=== PATIENT | female | born 1970 | race African-American/Black ===

== ENCOUNTER 2017-03-06 10:43 | Day surgery (SDC) | payer OTHER ==
[2017-03-04 11:20] VITALS: BMI 36.6
[2017-03-06] MEDS ORDERED: methylPREDNISolone ACET (DEPO) 40 MG/1 ML VIAL ONE (12:04)
[2017-03-06] MEDS ORDERED: BUPIVACAINE HCL 0.25% 125 MG/50 ML VIAL ONE (12:04)
[2017-03-06] MEDS ORDERED: PROPOFOL 20 ML ONE (13:39)
[2017-03-06] MEDS ORDERED: ceFAZolin SODIUM 1 GM VIAL ONE (13:39)
[2017-03-06] MEDS ORDERED: LIDOCAINE HCL/PF 2% SDV 5ML VIAL ONE (13:39)
[2017-03-06] MEDS ORDERED: SUCCINYLCHOLINE CHLORIDE 200 MG/10 ML VIAL ONE (13:40)
[2017-03-06] MEDS ORDERED: MIDAZOLAM HCL 2 MG/2 ML SINGLE DOSE VIAL ONE (13:44)
[2017-03-06] MEDS ORDERED: IBUPROFEN 400 MG TABLET (FP) PO PRN (13:47)
[2017-03-06] MEDS ORDERED: ROCURONIUM BROMIDE 50 MG/5 ML VIAL ONE (14:01)
[2017-03-06] MEDS ORDERED: BUPIVACAINE HCL/PF 0.25% (2.5MG/ML) 10 ML VIAL IJ ONE (14:53)
[2017-03-06] MEDS ORDERED: methylPREDNISolone ACET (DEPO) 40 MG/1 ML VIAL NR ONE (14:55)
[2017-03-06] MEDS ORDERED: NEOSTIGMINE METHYLSULFATE 0.5 MG/ML - 10 ML MDV ONE (14:56)
[2017-03-06] MEDS ORDERED: GLYCOPYRROLATE 0.2 MG/1 ML VIAL ONE (14:56)
[2017-03-06] MEDS ORDERED: ONDANSETRON 4 MG/2 ML VIAL ONE (14:56)
[2017-03-06] MEDS ORDERED: oxyCODONE HCL 5 MG TABLET PO PRN (15:21)
[2017-03-06] MEDS ORDERED: ONDANSETRON 4 MG/2 ML VIAL IVPUSH PRN (15:21)
--- NOTE | 2017-03-06 15:29 | OP ---
Operative Note - Note: Operative Date: 03/06/17 Pre-Operative Diagnosis: Right knee pain. Lateral meniscus instability. Possible medial meniscus tear Operation: 1. Surgical arthroscopy right knee. 2. ACL debridement. 3. Partial synovial debridement. Right thigh tourniquet: 250mmHg x 26min Findings: 1. Medial & lateral meniscus instability 2. Chondromalacia patella 3. Degenerative ACL 4. Degenerative PCL Post-Operative Diagnosis: Other Surgeon: Joe Bennett Anesthesiologist/BARREL WASHER: Sade Witt Anesthesia: General Fluid Volume Replaced (mls): 1,000 Operative Report Dictated: Yes
[2017-03-06] MEDS ORDERED: LACTATED RINGERS SOLUTION 1,000 ML IV SCH (15:30)
[2017-03-06 16:22] VITALS: TEMP 98
[2017-03-06] MEDS ORDERED: IBUPROFEN 400 MG TABLET (FP) PO ONE (16:24)
[2017-03-06 17:39] VITALS: BP 122/74; PULSE 78
[2017-03-07] MEDS ORDERED: MULTIVITAMINS (DAILY MVI) TABLET (FP) PO SCH (10:00)
--- NOTE | 2017-03-08 23:45 | OP ---
DATE OF OPERATION: 03/06/2017 SURGEON: Joe Bennett M.D. DIETARY SERVICES MANAGER: None. PREOPERATIVE DIAGNOSIS: 1. Right medial meniscus tear. 2. Right knee lateral meniscus instability. PREOPERATIVE DIAGNOSIS: 1. Right knee medial meniscus instability. 2. Right knee lateral meniscus instability. 3. Right knee chondromalacia patella. 4. Right knee degenerative anterior cruciate ligament. 5. Right knee degenerative posterior cruciate ligament. SURGICAL PROCEDURE: 1. Surgical arthroscopy right knee. 2. Right knee anterior cruciate ligament debridement. 3. Partial synovectomy right knee. ANESTHESIA: General. POSITION: Supine. INCISION: Standard anteromedial & anterolateral arthroscopy portals. ESTIMATED BLOOD LOSS: Minimal. INTRAVENOUS FLUIDS: 1 L crystalloid. SPECIMENS: None. DRAINS: None. COMPLICATIONS: None. URINE OUTPUT: None. BACTERIOLOGY: None. TRANSFUSIONS: None. TOURNIQUET PRESSURE: 250mmHg TOURNIQUET TIME: 26 min. CLOSURE: 3-0 nylon. INDICATION: The patient is a 46-year-old female who was indicated for a surgical arthroscopy of the right knee with debridement in order to facilitate improved motion and mobilization and to prevent the complications associated with a sedentary lifestyle. The patient was identified in the holding area by her arm band. A long discussion was held with the patient in the presence of her regarding the risks, benefits, and alternatives of the above named procedure. Risks include but are not limited to : pain, bleeding, infection, damage to surrounding structures (including nerves, blood vessels, skin, ligaments, tendons, and bone), wound complications, need for further surgery, blood clots, myocardial infarction, pulmonary embolism, anesthesia complications, compartment syndrome, limb loss, loss of function, and . Benefits as mentioned. Alternatives include no surgery. All questions were answered. The patient and her understood and agreed to the procedure. Informed consent was obtained, witnessed and verified. The patient's correct operative limb -that is the right lower extremity - was marked. The patient was then taken to the operating room after being assessed by the anesthesia and nursing staff. PROCEDURE: The patient was brought into the operating room, placed on the OR table and secured with a safety strap. Consent and the operative site were again verified with the patient and nursing and anesthesia staff. Anesthesia was then administered without complications including IV 2 g Ancef, for antibiosis. A time-out was done led by , the attending surgeon. The patient was positioned with all bony prominences well padded. A tourniquet was placed proximally on the right thigh and set to 250 mmHg. The right thigh was then secured in a leg hickey. The operative site was then prepped and draped in standard, sterile fashion. A timeout was again done. The limb was exsanguinated using an Esmarch, the tourniquet was inflated, and the case began. A standard anterolateral arthroscopy portal was made to the lateral compartment of the right knee. The arthroscope was then delivered via this incision suprapatellar pouch. There the knee was insufflated with normal saline containing epinephrine for hemostasis. Next, grade 1-2 chondromalacia was observed of the articular surface of the patella. The arthroscope was then delivered into the medial gutter of the knee, where no loose bodies were seen. Next, a gentle valgus stress was applied to the knee, and the arthroscope was delivered into the medial joint space where the meniscus was found to be completely intact. Although there were no tears in the meniscus it did appear somewhat unstable, as the body of the meniscus floated medially as the knee was irrigated with fluid. The posterior horn and root of the meniscus remained firmly attached, anchoring the body of the meniscus from completely displacing outside of the medial joint space. Next an 18-gauge needle was used to triangulate a standard anteromedial arthroscopy portal. Again, an incision was made using an 11-blade, and a trocar was then used to enter the medial joint space of the knee. A probe was introduced and used to demonstrate the instability of the medial meniscus. Next, the arthroscope was delivered into the middle of the knee where the ACL was found to be remarkably degenerative. Although it was intact and stable, the fibers appeared wispy. This was demonstrated using the probe. The PCL origin also appeared degenerative, and there was abundant nonspecific scar tissue in the vicinity of the PCL origin. The PCL was present. Next the arthroscope was delivered into the lateral compartment of the right knee as gentle varus stress was applied. No significant chondromalacia was observed on the lateral femoral condyle as well as on the lateral tibial plateau. However, although the lateral meniscus of the right knee was fully intact with no signs of degeneration or tear, it too was remarkably unstable. The lateral meniscus remained rooted by its anterior and posterior horns, but the body and rest of the meniscus floated laterally and anteriorly with irrigation and movement of the knee. Next the arthroscope was delivered into the lateral gutter of the knee, where once again no loose bodies were found and returned to the suprapatellar pouch, where the knee was irrigated with 3 L of normal saline solution. Hemostasis was assured. The arthroscope inflow was then clamped, and the outflow was utilized to fully aspirate all fluid from within the knee. A 5cc injection consisting of 4cc 0.25% marcaine and 1cc of depomedrol (40mg/mL) was delivered into the lateral compartment of the right knee. The wounds were then closed primarily with 3-0 nylon suture in standard [id number] suture fashion. A sterile compressive dressing was applied. The tourniquet was released at a final time of 26 minutes. Sponge and needle counts were correct at the end of the case, and I, the attending surgeon, was present and scrubbed throughout the case. The patient was then extubated by the anesthesia staff without incident or complications and transferred to the recovery room in stable condition having tolerated the procedure well. MD ZULEMA Cervantes/[id number] MTDD
== END 2017-03-06 17:25 | disposition home or self-care (01) ==
LOC: FASU 10:43
PROVIDERS: ATTEND Orthopaedic Surgery Adult Reconstructive Orthopaedic Surgery
PROC: 0MSN4ZZ Reposition Right Knee Bursa and Ligament, Percutaneous Endoscopic Approach (ICD-10-PCS; 2017-03-06)
PROC: 0MSN4ZZ Reposition Right Knee Bursa and Ligament, Percutaneous Endoscopic Approach (ICD-10-PCS; principal; 2017-03-06 13:38)
DX: S83.241D Other tear of medial meniscus, current injury, right knee, subsequent encounter (principal); X58.XXXD Exposure to other specified factors, subsequent encounter; M22.41 Chondromalacia patellae, right knee; M23.611 Other spontaneous disruption of anterior cruciate ligament of right knee
CPT/HCPCS: 84703; 94760